=== PATIENT | female | born 1985 | race Hispanic/Latino ===

== ENCOUNTER 2022-11-03 19:45 | Emergency (ER) | payer SELFPAY ==
[2022-11-03 19:52] VITALS: BP 112/63; PULSE 89; RESP 18; TEMP 37.1; O2SAT 98; BMI 22.8
[2022-11-03 20:13] LABS: Bacteria Urine Moderate (10-30); Culture Indicated Urine Specimen Cultured; RBC Urine None Seen (0-5/HPF); Squamous Epithelial Cell Urine 1-5 /HPF (0-5/HPF); WBC Urine 1-5/HPF (0-5/HPF)
--- NOTE | 2022-11-03 20:22 | ED.GENADULT ---
HPI - General Adult General Chief complaint: Urogenital-Female Stated complaint: UTI X t-7, FEVER Abd and Kidney pain Time Seen by Provider: 11/03/22 20:05 Source: patient Mode of arrival: Ambulatory History of Present Illness HPI narrative: Patient is a 37-year-old female who is here for evaluation approximately 1 week of urinary urgency and frequency. She also thinks she has a yeast infection. She is got some abdominal discomfort. Started having vomiting over the past 24 hours. No fevers. She has had a urinary tract infection in the past and that was several months ago. She does not know what antibiotic she was taken at the time. Related Data Previous Rx's Medication Instructions Recorded cephalexin 500 mg capsule 500 mg PO BID 5 days #10 caps 11/03/22 fluconazole 100 mg tablet 100 mg PO DAILY #2 tabs 11/03/22 (Diflucan) Allergies Allergy/AdvReac Type Severity Reaction Status Date / Time morphine Allergy Hives Verified 11/03/22 19:52 NSAIDS (Non-Steroidal Allergy Swelling Verified 11/03/22 19:52 Anti-Inflamma of Lip/Tongue/Throat Review of Systems Constitutional Constitutional: Reports system reviewed and no additional complaints, except as documented Gastrointestinal Gastrointestinal: Reports system reviewed and no additional complaints, except as documented Genitourinary Genitourinary: Reports system reviewed and no additional complaints, except as documented Musculoskeletal Musculoskeletal: Reports system reviewed and no additional complaints, except as documented Integumentary/Breasts Skin/Breast: Reports system reviewed and no additional complaints, except as documented Patient History Social History Smoking Status: Current every day smoker Smoking Status: Current every day smoker tobacco type: cigarettes and vaping Substance Use Type: does not use Exam Initial Vital Signs Initial Vital Signs: Vital Signs Temperature 98.8 F 11/03/22 19:52 Pulse Rate 89 11/03/22 19:52 Respiratory Rate 18 11/03/22 19:52 Blood Pressure 112/63 11/03/22 19:52 Pulse Oximetry 98 11/03/22 19:52 Oxygen Delivery Method Room Air 11/03/22 19:52 Const General: cooperative, comfortable and No ill appearing HENMT Head: normal to inspection and normocephalic GI Inspection: normal to inspection and non-distended Palpation: soft and No firm Back/Spine/Pelvis Back: No CVA tenderness Skin General: no rashes or lesions noted Neuro General: patient alert and patient awake Course Orders Ordered: ED Orders 11/03/22 19:50 Urine Culture Stat Urine Microscopic Stat 11/03/22 20:22 Chlamydia Gonorrhea PCR -URINE Stat Discontinued Medications Hydrocodone Bitart/Acetaminophen (Hydrocodone/Acet 5/325 Tablet) 1 tab PO NOW ONE Stop: 11/03/22 20:58 Last Admin: 11/03/22 21:03 Dose: 1 tab Documented By: RANGEL Cephalexin HCl (Cephalexin 250 Mg Capsule) 500 mg PO NOW ONE Stop: 11/03/22 20:24 Last Admin: 11/03/22 20:32 Dose: 500 mg Documented By: RANGEL Fluconazole (Fluconazole 100 Mg Tablet) 100 mg PO NOW ONE Stop: 11/03/22 22:08 Last Admin: 11/03/22 22:22 Dose: 100 mg Documented By: LORAINE Ondansetron HCl (Ondansetron 4 Mg Odt) 4 mg SL NOW PRN PRN Reason: Nausea And Vomiting Last Admin: 11/03/22 20:32 Dose: 4 mg Documented By: RANGEL Ondansetron HCl (Ondansetron 4 Mg/2 Ml Inj) 4 mg IV NOW PRN PRN Reason: Nausea And Vomiting Ondansetron HCl (Ondansetron 4 Mg Odt Prepack) 1 bottle MISC SEEINSTR ONE Stop: 11/03/22 22:08 Last Admin: 11/03/22 22:22 Dose: 1 bottle Documented By: LORAINE Vital Signs Vital signs: Vital Signs - 8 hr 11/03/22 19:52 11/03/22 22:17 Temperature 98.8 F 98.6 F Pulse Rate 89 89 Respiratory Rate 18 16 Blood Pressure 112/63 115/67 Pulse Oximetry 98 99 Oxygen Delivery Method Room Air Room Air Medical Decision Making Lab Data Lab results reviewed: Yes I reviewed the patient's lab results. Labs: Lab Results 11/03/22 11/03/22 Range/Units 19:50 20:22 Urine RBC None seen (0-5/HPF) Urine WBC 1-5/hpf (0-5/HPF) Ur Squamous Epith Cells 1-5 /hpf (0-5/HPF) Urine Bacteria Moderate (10-30) H (None) Ur Culture Indicated? Specimen cultured Ur Chlamydia DNA (PCR) Not detected N gonorrhoeae DNA (PCR) Not detected Point of Care Testing Test Results Negative Urine Dip Bedside Urine Glucose Negative Bedside Urine Bilirubin - Negative Bedside Urine Ketone - Negative Urine Specific [place] 1.01 Bedside Urine Occult Blood - Negative Bedside Urine pH 6 Bedside Urine Protein - Negative Bedside Urine Urobilinogen - Negative Bedside Urine Nitrite + Positive Bedside Urine Leukocytes +/- 15 Esterase Point of care testing: Point of Care Testing Test Results Negative Urine Dip Bedside Urine Glucose Negative Bedside Urine Bilirubin - Negative Bedside Urine Ketone - Negative Urine Specific [place] 1.01 Bedside Urine Occult Blood - Negative Bedside Urine pH 6 Bedside Urine Protein - Negative Bedside Urine Urobilinogen - Negative Bedside Urine Nitrite + Positive Bedside Urine Leukocytes +/- 15 Esterase MDM Narrative Medical decision making narrative: Urinalysis today is consistent with a urinary tract infection. She was able to tolerate an oral dose of antibiotics here in the ER. She is nontoxic appearing. Her GC and chlamydia are negative as well. She states that she has a yeast infection. She is had these in the past. Low suspicion for pyelonephritis. Plan will be is to discharge home with a prescription for antibiotics. We will also presumptively treat her for urinary tract infection. She was given Zofran for nausea as well. She understands that there is a urine culture pending at the time of her discharge she will be contacted if we need to change any antibiotics. Prescriptions were sent to the pharmacy of her choice. There was no indication for admission. Will hold on any radiologic studies for now. She expressed understanding and agreement this plan. Discharge Plan Departure Patient Disposition: Home Clinical Impression: Urinary tract infection, Yeast infection Instructions: DI for Urinary Tract Infection (UTI) Activity Restrictions/Additional Instructions: I do recommend that you take all of the medications as directed. Urine culture was pending at the time of your discharge we will contact you if we need to change antibiotics based on this. Return to the emergency department for new or worsening symptoms. Prescriptions: New cephalexin 500 mg capsule 500 mg PO BID 5 Days Qty: 10 0RF fluconazole [Diflucan] 100 mg tablet 100 mg PO DAILY Qty: 2 0RF Stand Alone Forms: Patient Portal/API
[2022-11-03] MEDS: ONDANSETRON 4 MG ODT SL (20:32)
[2022-11-03] MEDS: cephALEXin 250 MG CAPSULE 500 MG PO (20:32)
[2022-11-03] MEDS: HYDROCODONE/ACET 5/325 TABLET 1 TAB PO (21:03)
[2022-11-03 21:58] LABS: Urine Chlamydia NOT DETECTED; Urine N gonorrhoeae NOT DETECTED
[2022-11-03 22:17] VITALS: BP 115/67; PULSE 89; RESP 16; TEMP 37; O2SAT 99
[2022-11-03] MEDS: ONDANSETRON 4 MG ODT PREPACK 1 BOTTLE MISC (22:22)
[2022-11-03] MEDS: FLUCONAZOLE 100 MG TABLET PO (22:22)
== END 2022-11-03 22:27 | disposition home or self-care (01) ==
PROVIDERS: Emergency Provider Emergency Medicine
DX: N39.0 Urinary tract infection, site not specified (principal)
CPT/HCPCS: 81003; 81015; 81025; 87086; 87491; 87591; 99283; 99284

== ENCOUNTER 2023-04-04 17:48 | Emergency (ER) | payer SELFPAY ==
[2023-04-04 17:55] VITALS: BP 106/57; PULSE 133; RESP 18; TEMP 36.3; O2SAT 97; BMI 21.0
--- NOTE | 2023-04-04 17:59 | DI.RAD.S_ITS ---
PROCEDURE: XR CHEST 1V INDICATIONS: suspected sepsis TECHNIQUE: One view of the chest was acquired. COMPARISON: None. FINDINGS: Surgical changes and devices: None. Lungs and pleura: Lungs are clear. No pleural effusions or pneumothorax. Mediastinum: Mediastinal contours appear normal. Heart size is normal. Bones and chest wall: No suspicious bony lesions. Overlying soft tissues appear unremarkable. IMPRESSION: No acute cardiopulmonary abnormality is seen. Dictated by: Eugenia Thomas M.D. on 04/04/2023 at 19:19 Approved by: Eugenia Thomas M.D. on 04/04/2023 at 19:19
[2023-04-04] MEDS: ONDANSETRON 4 MG/2 ML INJ IV ×2 (18:17→20:29)
[2023-04-04] MEDS: SODIUM CHLORIDE 0.9% 1,000 ML 1000 ML IV ×2 (18:18→20:52)
--- NOTE | 2023-04-04 18:27 | DI.CT.S_ITS ---
PROCEDURE: CT KIDNEY URETER BLADDER (KUB) INDICATIONS: flank pain TECHNIQUE: Axial sections were acquired from the lung bases to the pubic symphysis. Coronal and sagittal reformats were performed. For radiation dose reduction, the following was used: automated exposure control, adjustment of mA and/or kV according to patient size. COMPARISON: None. FINDINGS: Image quality: Diagnostic. Lower Chest: No significant findings. URINARY: Right Kidney: No stones or hydronephrosis. Right Ureter: No hydroureter. Left Kidney: There is asymmetric volume loss in the left lower pole with an exophytic cyst present. No retained stone or hydronephrosis. Left Ureter: No hydroureter. Bladder: Normal wall thickness. No stones. ABDOMEN: Liver: No contour-deforming solid mass. Gallbladder: Decompressed. Biliary ducts: No biliary dilation. Pancreas: Not well seen due to lack of IV contrast. Spleen: Size is within normal limits. Adrenal Glands: No adrenal nodules. Stomach and Bowel: The stomach is filled with ingested material. Small bowel loops and colon are normal. The appendix is surgically absent. Peritoneum: No abnormal intraperitoneal fluid. No free air. Ventral Wall: No hernia. Abdominal Nodes: No enlarged retroperitoneal or mesenteric lymph nodes. Vessels: Aorta and inferior vena cava are normal in size. PELVIS: Pelvic Organs: Anteverted uterus. Tubal ligation clips are present. Ovaries are not well seen by CT. Pelvic Nodes: Unremarkable. Miscellaneous: No inguinal hernias are seen. Bones: Unremarkable. IMPRESSION: No obstructing stones or hydronephrosis. No acute findings. Dictated by: Eugenia Thomas M.D. on 04/04/2023 at 20:11 Approved by: Eugenia Thomas M.D. on 04/04/2023 at 20:15
[2023-04-04] MEDS: HYDROMORPHONE 1 MG INJ IV (18:31)
[2023-04-04 18:44] LABS: Add Manual Diff / Slide Review NO; Basophils Absolute Auto 0 /uL (0-100); Basophils Percent Auto 0.3 % (0-2); Eosinophils Absolute Auto 0 /uL (0-450); Eosinophils Percent Auto 0.2 % (2-4); Hematocrit 34.9 % (36-46); Hemoglobin 11.4 g/dL (12.0-16.0); Lymphocytes Absolute Auto 2000 /uL (1100-4500); Lymphocytes Percent Auto 21.1 % (25-40); Mean Corpuscular HGB Conc 32.7 % (30-36); Mean Corpuscular Hemoglobin 26.4 PG (26-34); Mean Corpuscular Volume 80.8 fL (80-100); Monocytes Absolute Auto 600 /uL (0-900); Monocytes Percent Auto 6.9 % (3-14); Neutrophils Absolute Auto 6700 /uL (1500-7000); Neutrophils Percent Auto 71.5 % (50-75); Platelet Count 595 X10^3/uL (150-400); Red Blood Cell Count 4.32 X10^6/uL (4.0-5.2); Red Cell Distribution Width 14.9 % (11.6-14.8); White Blood Cell Count 9.4 X10^3/uL (4.5-11.0)
[2023-04-04 18:57] LABS: INR 0.9 (0.9-1.3); Prothrombin Time 10.2 SECONDS (9.4-12.5)
[2023-04-04 19:00] LABS: PTT Partial Thromboplastin Tim 24 SECONDS (25.1-36.5)
[2023-04-04 19:08] LABS: Lactate (Lactic Acid) 1.7 mmol/L (0.7-2.1)
[2023-04-04 19:09] LABS: Alanine Aminotransferase 21 IU/L (<35); Albumin 4.5 g/dL (3.5-5.0); Albumin Globulin Ratio 1.3 (1.0-2.8); Alkaline Phosphatase 52 U/L (38-126); Aspartate Aminotransferase 36 IU/L (14-36); BUN Creatinine Ratio 25.5 (6-22); Bilirubin Total 0.7 mg/dL (0.2-1.3); Blood Urea Nitrogen 12 mg/dL (7-17); Calcium 9.6 mg/dL (8.4-10.2); Carbon Dioxide 23 mmol/L (22-32); Chloride 104 mmol/L (98-107); Estimated Glomerular Filt Rate > 60 mL/min (>60); Globulin 3.6 g/dL (1.7-4.1); Glucose 90 mg/dL (70-100); HEMOLYSIS < 15 (0-50); Lipase 103 U/L (23-300); Potassium 3.6 mmol/L (3.4-5.1); Sodium 138 mmol/L (137-145); Total Protein 8.1 g/dL (6.3-8.2)
[2023-04-04 19:25] LABS: Procalcitonin 0.03 ng/mL (<0.5)
[2023-04-04 19:30] LABS: Urine Volume 10mL (spun)
[2023-04-04 19:50] LABS: Appearance Urine UA CLEAR; Color Urine UA ORANGE
[2023-04-04 19:54] LABS: RBC Urine 0-1/HPF (0-5/HPF)
[2023-04-04 19:55] LABS: Bacteria Urine Few (2-10); Culture Indicated Urine Specimen Cultured; Mucus Urine 3+ (Negative); Squamous Epithelial Cell Urine 10-30 /HPF (0-5/HPF); WBC Urine 10-30/HPF (0-5/HPF)
[2023-04-04] MEDS: OXYCODONE IR 5 MG TABLET PO (20:52)
[2023-04-04] MEDS: cefTRIAXone 2,000 MG in SODIUM CHLORIDE 0.9% 100 ML 200 MG IV (20:53)
--- NOTE | 2023-04-04 20:56 | ED.FEMALEGU ---
HPI - Female Genitourinary General Chief complaint: Urogenital-Female Stated complaint: V/burning while urinating/Hx kidney stones Time Seen by Provider: 04/04/23 18:22 History of Present Illness HPI Narrative: 37-year-old female here complaining of left leg pain. She has had this about 4 days, she has also had dysuria and frequency. For last 24 hours she has had nausea vomiting and believes she had a fever last night. Patient reports a history of kidney infections in the past and history of kidney stones. Other past medical history include uterine fibroids. She is status post tubal ligation. Related Data Previous Rx's Medication Instructions Recorded fluconazole 100 mg tablet 100 mg PO DAILY #2 tabs 11/03/22 (Diflucan) cefdinir 300 mg capsule 300 mg PO BID #20 caps 04/04/23 ondansetron 4 mg disintegrating 4 mg PO Q6H PRN nausea and 04/04/23 tablet vomiting #14 tabs oxycodone 5 mg tablet 5 mg PO Q6H PRN pain #7 tabs 04/04/23 Allergies Allergy/AdvReac Type Severity Reaction Status Date / Time morphine Allergy Hives Verified 11/03/22 19:52 NSAIDS (Non-Steroidal Allergy Swelling Verified 11/03/22 19:52 Anti-Inflamma of Lip/Tongue/Throat Patient History tobacco type: cigarettes and vaping Last Alcoholic Drink: Does not use Substance Use Type: does not use Exam Narrative Exam Narrative: Alert, no acute distress HEENT: Normocephalic, atraumaitic moist mucus membranes Neck: Supple no midline tenderness Lungs: Clear to ascultaion, no respiratory distress Heart: Regular rhythm and rate no murmur Abdomen: Normal bowel sounds, soft and nontender postive L CVAT Extremeties: Full range of motion no deformity Neuro: Alert and oriented, normal speech moves x4 Initial Vital Signs Initial Vital Signs: Vital Signs Temperature 97.3 F L 04/04/23 17:55 Pulse Rate 133 H 04/04/23 17:55 Respiratory Rate 18 04/04/23 17:55 Blood Pressure 106/57 L 04/04/23 17:55 Pulse Oximetry 97 04/04/23 17:55 Oxygen Delivery Method Room Air 04/04/23 17:55 Course Orders Ordered: ED Orders 04/04/23 17:59 XR chest 1V Stat EKG-12 Lead Stat RT Consult Eval and Treat NOW 04/04/23 18:10 Complete Blood Count AUTO DIFF Stat Comprehensive Metabolic Panel Stat Lactate (Lactic Acid) Stat Lipase Stat PTT Partial Thromboplastin [place] Stat Procalcitonin Stat Prothrombin Time INR Stat 04/04/23 18:27 CT kidney ureter bladder (KUB) Stat 04/04/23 18:30 Blood Culture Stat 04/04/23 19:19 Urinalysis and Microscopic Stat Urine Culture Stat Discontinued Medications Hydromorphone HCl (Hydromorphone 1 Mg Inj) 1 mg IV NOW ONE Stop: 04/04/23 18:28 Last Admin: 04/04/23 18:31 Dose: 1 mg Documented By: STEVE Sodium Chloride (Normal Saline 0.9%) 1,000 mls @ 1,000 mls/hr IV BOLUS ONE Stop: 04/04/23 18:58 Last Infusion: 04/04/23 19:31 Dose: Infused Documented By: Admin: 04/04/23 18:18 Dose: 1,000 mls/hr Documented By: STEVE Ceftriaxone Sodium 2,000 mg/ (Sodium Chloride) 100 mls @ 200 mls/hr IV NOW ONE Stop: 04/04/23 20:42 Last Infusion: 04/04/23 21:32 Dose: Infused Documented By: Admin: 04/04/23 20:53 Dose: 200 mls/hr Documented By: STEVE Sodium Chloride (Normal Saline 0.9%) 1,000 mls @ 1,000 mls/hr IV BOLUS ONE Stop: 04/04/23 21:40 Last Infusion: 04/04/23 21:42 Dose: Infused Documented By: Admin: 04/04/23 20:52 Dose: 1,000 mls/hr Documented By: STEVE Ondansetron HCl (Ondansetron 4 Mg/2 Ml Inj) 4 mg IV NOW PRN PRN Reason: Nausea And Vomiting Last Admin: 04/04/23 18:17 Dose: 4 mg Documented By: STEVE Ondansetron HCl (Ondansetron 4 Mg Odt) 4 mg SL NOW PRN PRN Reason: Nausea And Vomiting Ondansetron HCl (Ondansetron 4 Mg/2 Ml Inj) 4 mg IV NOW ONE Stop: 04/04/23 20:25 Last Admin: 04/04/23 20:29 Dose: 4 mg Documented By: STEVE Oxycodone HCl (Oxycodone Ir 5 Mg Tablet) 5 mg PO NOW ONE Stop: 04/04/23 20:42 Last Admin: 04/04/23 20:52 Dose: 5 mg Documented By: STEVE Vital Signs Vital signs: Vital Signs - 8 hr 04/04/23 22:05 Temperature 98.2 F Pulse Rate 95 H Respiratory Rate 16 Blood Pressure 109/69 Pulse Oximetry 100 Oxygen Delivery Method Room Air MDM - Female Genitourinary Lab Data Lab results narrative: CBC with diff is remarkable for elevated platelet count, CMP is unremarkable, urinalysis shows pyuria and bacteriuria she did have some squamous epithelial cells 04/04/23 18:10 04/04/23 18:10 Labs: Lab Results 04/04/23 04/04/23 Range/Units 18:10 19:19 WBC 9.4 (4.5-11.0) X10^3/uL RBC 4.32 (4.0-5.2) X10^6/uL Hgb 11.4 L (12.0-16.0) g/dL Hct 34.9 L (36-46) % MCV 80.8 (80-100) fL MCH 26.4 (26-34) PG MCHC 32.7 (30-36) % RDW 14.9 H (11.6-14.8) % Plt Count 595 H (150-400) X10^3/uL Neut % (Auto) 71.5 (50-75) % Lymph % (Auto) 21.1 L (25-40) % [place] % (Auto) 6.9 (3-14) % Eos % (Auto) 0.2 L (2-4) % Baso % (Auto) 0.3 (0-2) % Neut # (Auto) 6700 (8541-8627) /uL Lymph # (Auto) 2000 (0107-7691) /uL [place] # (Auto) 600 (0-900) /uL Eos # (Auto) 0 (0-450) /uL Baso # (Auto) 0 (0-100) /uL PT 10.2 (9.4-12.5) SECONDS INR 0.9 (0.9-1.3) APTT 24 L (25.1-36.5) SECONDS Sodium 138 (137-145) mmol/L Potassium 3.6 (3.4-5.1) mmol/L Chloride 104 (98-107) mmol/L Carbon Dioxide 23 (22-32) mmol/L BUN 12 (7-17) mg/dL Creatinine 0.47 L (0.52-1.04) mg/dL Estimated GFR > 60 (>60) mL/min BUN/Creatinine Ratio 25.5 H (6-22) Glucose 90 (70-100) mg/dL Lactate 1.7 (0.7-2.1) mmol/L Calcium 9.6 (8.4-10.2) mg/dL Total Bilirubin 0.7 (0.2-1.3) mg/dL AST 36 (14-36) IU/L ALT 21 (<35) IU/L Alkaline Phosphatase 52 (38-126) U/L Total Protein 8.1 (6.3-8.2) g/dL Albumin 4.5 (3.5-5.0) g/dL Globulin 3.6 (1.7-4.1) g/dL Albumin/Globulin Ratio 1.3 (1.0-2.8) Lipase 103 (23-300) U/L Procalcitonin 0.03 (<0.5) ng/mL Urine Color [place] Urine Appearance Clear Urine pH (4.5-8.0) Ur Specific [place] TNP Urine Protein TNP Urine Glucose (UA) TNP Urine Ketones TNP Urine Occult Blood TNP Urine Nitrate TNP Urine Bilirubin TNP Urine Urobilinogen TNP Ur Leukocyte Esterase TNP Urine RBC 0-1/hpf (0-5/HPF) Urine WBC 10-30/hpf H (0-5/HPF) Ur Squamous Epith Cells 10-30 /hpf H D (0-5/HPF) Urine Bacteria Few (2-10) H (None) Urine Mucus 3+ H (Negative) Ur Culture Indicated? Specimen cultured Vol Urine Centrifuged 10ml (spun) Imaging Data Chest x-ray: My Impression: Independent review, no acute disease Radiologist's Impression: Per Radiology report, no acute disease CT scan - abdomen/pelvis: My Impression: On my independent review, no hydronephrosis no ureteral stone no bowel obstruction Radiologist's Impression: Per radiology report, no obstruction, no acute findings MDM Narrative Medical decision making narrative: 37-year-old female who is status post tubal ligation and therefore assumed not to be . She has left flank pain left CVAT and urinary symptoms. Presentation is very suggestive of pyelonephritis. No evidence of bowel obstruction or ureteral stone. I started her on ceftriaxone here and discharged her on cefdinir. She also is given a prescription for a few oxycodone for pain and ondansetron for nausea and vomiting. Discharge Plan Departure Patient Disposition: Home Clinical Impression: Pyelonephritis Activity Restrictions/Additional Instructions: We are treating you today for a kidney infection. Antibiotics given in the emergency department we will cover you for 24 hours, sisal picker the prescribed antibiotic and take it as directed for the full course. Your next dose should be tomorrow afternoon. You can use ibuprofen as needed for pain, Ibuprofen (motrin or advil) should be dosed at 600mg (3 non-prescription tablets) every 6 hours. Taking this on a scheduled basis is more effective. It is a good idea to take this with food. Use this with caution if you have a history of bleeding ulcers or renal disease. I also prescribed a few oxycodone to use as needed for pain and ondansetron to use for nausea. Rest and get adequate fluids. If you are having increasing pain uncontrolled vomiting or other acute symptoms recheck in the emergency department. Follow up soon with your primary care provider. Prescriptions: New cefdinir 300 mg capsule 300 mg PO BID Qty: 20 0RF ondansetron 4 mg tablet,disintegrating 4 mg PO Q6H PRN (Reason: nausea and vomiting) Qty: 14 0RF oxycodone 5 mg tablet 5 mg PO Q6H PRN (Reason: pain) Qty: 7 0RF No Action fluconazole [Diflucan] 100 mg tablet 100 mg PO DAILY Qty: 2 0RF Stand Alone Forms: Patient Portal/API, Work Release Note
[2023-04-04 22:05] VITALS: BP 109/69; PULSE 95; RESP 16; TEMP 36.8; O2SAT 100
== END 2023-04-04 22:46 | disposition home or self-care (01) ==
PROVIDERS: Emergency Medicine; Emergency Provider Emergency Medicine
DX: N12 Tubulo-interstitial nephritis, not specified as acute or chronic (principal); R30.0 Dysuria
CPT/HCPCS: 36415; 71045; 74176; 80053; 81001; 83605; 83690; 84145; 85025; 85610; 85730; 87040; 87086; 96361; 96365; 96375; 96376; 99284; J0696; J1170; J2405

== ENCOUNTER 2023-09-09 20:38 | Emergency (ER) | payer SELFPAY ==
[2023-09-09 20:42] VITALS: BP 126/70; PULSE 119; RESP 20; TEMP 37.2; O2SAT 99; BMI 21.0
[2023-09-09 21:03] LABS: Strep Grp A by PCR Rapid Positive (Negative)
--- NOTE | 2023-09-09 22:38 | ED_ITS ---
HPI - URI/Sore Throat General Chief Complaint: Upper Respiratory Symptoms Stated Complaint: sore throat T-3 Time Seen by Provider: 09/09/23 22:18 Source: patient Mode of arrival: Family Vehicle History of Present Illness HPI Narrative: 37-year-old female with sore throat symptoms since yesterday, also some dysuria and left-sided flank pain, nausea and vomiting nonbloody. She denies cough shortness of breath or chest pain. She denies having fevers. She has swelling symptoms with ibuprofen and NSAIDs, has tried Tylenol with little relief of discomfort. Related Data Previous Rx's Medication Instructions Recorded fluconazole 100 mg tablet 100 mg PO DAILY #2 tabs 11/03/22 (Diflucan) cefdinir 300 mg capsule 300 mg PO BID #20 caps 04/04/23 ondansetron 4 mg disintegrating 4 mg PO Q6H PRN nausea and 04/04/23 tablet vomiting #14 tabs oxycodone 5 mg tablet 5 mg PO Q6H PRN pain #7 tabs 04/04/23 amoxicillin 875 mg tablet 875 mg PO BID dental infection 7 09/09/23 days #14 tabs Allergies Allergy/AdvReac Type Severity Reaction Status Date / Time morphine Allergy Hives Verified 09/09/23 20:47 NSAIDS (Non-Steroidal Allergy Swelling Verified 09/09/23 20:47 Anti-Inflamma of Lip/Tongue/Throat Review of Systems Review of Systems Narrative: Per HPI Patient History Social History Smoking Status: Current every day smoker Smoking Status: Current every day smoker tobacco type: cigarettes and vaping Substance Use Type: does not use Exam Narrative Exam Narrative: GENERAL: Well-developed patient, in mild distress. HEAD: Atraumatic. Normocephalic. EYES: Pupils equal round and reactive. Extraocular motions intact. No scleral icterus. No injection or drainage. ENT: Nose without bleeding, purulent drainage. Oropharynx with some erythema, no exudates, no tonsillar edema or exudate, no palatal edema, no visible tonsils. Airway patent. NECK: Trachea midline. Non tender CARDIOVASCULAR: Regular rate and rhythm without murmurs, gallops, or rubs. RESPIRATORY: Clear to auscultation. Breath sounds equal bilaterally. No wheezes, rales, or rhonchi. GASTROINTESTINAL: Abdomen soft, non-tender, nondistended. EXTREMITIES: No edema or joint tenderness. BACK: Nontender without deformity or crepitance. No flank tenderness. NEURO: AOx3. SKIN: No rash or erythema of visible areas Initial Vital Signs Initial Vital Signs: Vital Signs Temperature 99 F 09/09/23 20:42 Pulse Rate 119 H 09/09/23 20:42 Respiratory Rate 20 09/09/23 20:42 Blood Pressure 126/70 09/09/23 20:42 Pulse Oximetry 99 09/09/23 20:42 Oxygen Delivery Method Room Air 09/09/23 20:42 Course Orders Ordered: ED Orders 09/09/23 23:00 Urinalysis and Microscopic Stat Discontinued Medications Amoxicillin (Amoxicillin 250 Mg Capsule) 1,000 mg PO NOW ONE Stop: 09/09/23 23:31 Last Admin: 09/09/23 23:39 Dose: 1,000 mg Documented By: Ondansetron HCl (Ondansetron 4 Mg Odt) 4 mg SL NOW ONE Stop: 09/09/23 22:43 Last Admin: 09/09/23 22:55 Dose: 4 mg Documented By: ESSIE Ondansetron HCl (Ondansetron 4 Mg Odt Prepack) 1 bottle MISC DIRECTED ONE Stop: 09/09/23 23:31 Last Admin: 09/09/23 23:38 Dose: 1 bottle Documented By: Tramadol HCl (Tramadol 50 Mg Tablet) 50 mg PO NOW ONE Stop: 09/09/23 22:47 Last Admin: 09/09/23 22:55 Dose: 50 mg Documented By: ESSIE Tramadol HCl (Tramadol 50 Mg Prepack) 1 bottle MISC DIRECTED ONE Stop: 09/09/23 23:50 Last Admin: 09/09/23 23:53 Dose: 1 bottle Documented By: Vital Signs Vital signs: Vital Signs - 8 hr 09/09/23 23:49 Pulse Rate 98 H Respiratory Rate 18 Blood Pressure 140/89 Pulse Oximetry 100 Oxygen Delivery Method Room Air MDM - URI/Sore Throat Lab Data Attestation: I reviewed the patient's lab results. Labs: Lab Results 09/09/23 09/09/23 Range/Units 20:50 23:00 Urine Color Yellow Urine Appearance Clear Urine pH 6.5 (4.5-8.0) Ur Specific [place] 1.020 (1.000-1.035) Urine Protein Negative (Negative) Urine Glucose (UA) Negative (Negative) g/dL Urine Ketones Negative (NEGATIVE) Urine Occult Blood Negative (Negative) Urine Nitrate Negative (Negative) Urine Bilirubin Negative (NEGATIVE) Urine Urobilinogen 0.2 (0.2) E.U./dL Ur Leukocyte Esterase Negative (NEGATIVE) Urine RBC None seen (0-5/HPF) Urine WBC None seen (0-5/HPF) Ur Squamous Epith Cells >30 /hpf H (0-5/HPF) Urine Bacteria None seen (None) Ur Culture Indicated? Cult not indicated Vol Urine Centrifuged 10ml (spun) Group A Strep (PCR) Positive H (Negative) MDM Narrative Medical decision making narrative: 37-year-old female with sore throat symptoms, no cough, rapid strep screen positive. Consider amoxicillin, however patient also has had dysuria. Urinalysis ordered Urinalysis contaminated but not obviously infected. P.o. amoxicillin for strep pharyngitis, prescription sent for further course of antibiotic. ODT ondansetron to use if needed, tramadol home pack to use if needed for pain. History of NSAID allergies noted. Recheck with regular PCP if not improved by Tuesday, return precautions discussed. Home with family Discharge Plan Departure Patient Disposition: Home Clinical Impression: Strep pharyngitis, Dysuria Instructions: DI for Strep Throat Activity Restrictions/Additional Instructions: Sore throat symptoms, some nausea and vomiting, anti nausea medication ondansetr on oral dissolvable tablet given, history of allergy to anti-inflammatory medications, no Toradol given therefore, but oral dose of tramadol for pain control. Home pack of tramadol to use if needed. Tylenol as needed for pain control. Home pack of ondansetron ODT to use as needed for nausea control. Also some painful urination symptoms, urinalysis was somewhat contaminated but not obviously infected. First dose antibiotic amoxicillin for strep throat treatment, prescription for further antibiotics electronically sent to your pharmacy. Recheck symptoms on Tuesday if they are persisting. Recheck this/nearest emergency department for any change worsening symptoms or any concerns prior Prescriptions: New amoxicillin 875 mg tablet 875 mg PO BID 7 Days Qty: 14 0RF No Action fluconazole [Diflucan] 100 mg tablet 100 mg PO DAILY Qty: 2 0RF cefdinir 300 mg capsule 300 mg PO BID Qty: 20 0RF ondansetron 4 mg tablet,disintegrating 4 mg PO Q6H PRN (Reason: nausea and vomiting) Qty: 14 0RF oxycodone 5 mg tablet 5 mg PO Q6H PRN (Reason: pain) Qty: 7 0RF Stand Alone Forms: Patient Portal/API
[2023-09-09] MEDS: TRAMADOL 50 MG TABLET PO (22:55)
[2023-09-09] MEDS: ONDANSETRON 4 MG ODT SL (22:55)
[2023-09-09 23:13] LABS: Appearance Urine UA CLEAR; Bilirubin Urine UA NEGATIVE (NEGATIVE); Color Urine UA YELLOW; Glucose Urine UA NEGATIVE (Negative); Ketones Urine UA NEGATIVE (NEGATIVE); Leukocyte Esterase Urine UA NEGATIVE (NEGATIVE); Nitrite Urine UA NEGATIVE (Negative); Occult Blood Urine UA NEGATIVE (Negative); Protein Urine UA NEGATIVE (Negative); Urobilinogen Urine UA 0.2 E.U./dL (0.2)
[2023-09-09 23:14] LABS: pH Urine UA 6.5 (4.5-8.0)
[2023-09-09 23:23] LABS: Bacteria Urine None Seen; RBC Urine None Seen (0-5/HPF); Urine Volume 10mL (spun); WBC Urine None Seen (0-5/HPF)
[2023-09-09 23:24] LABS: Culture Indicated Urine Cult Not Indicated; Squamous Epithelial Cell Urine >30 /HPF (0-5/HPF)
[2023-09-09] MEDS: ONDANSETRON 4 MG ODT PREPACK 1 BOTTLE MISC (23:38)
[2023-09-09] MEDS: AMOXICILLIN 250 MG CAPSULE 1000 MG PO (23:39)
[2023-09-09 23:49] VITALS: BP 140/89; PULSE 98; RESP 18; O2SAT 100
[2023-09-09] MEDS: TRAMADOL 50 MG PREPACK 1 BOTTLE MISC (23:53)
== END 2023-09-09 23:57 | disposition home or self-care (01) ==
PROVIDERS: Emergency Provider Emergency Medicine
DX: J02.0 Streptococcal pharyngitis (principal); R30.0 Dysuria; F17.210 Nicotine dependence, cigarettes, uncomplicated; F17.290 Nicotine dependence, other tobacco product, uncomplicated
CPT/HCPCS: 81001; 87651; 99283

== ENCOUNTER 2024-04-29 16:24 | Emergency (ER) | payer SELFPAY ==
[2024-04-29] VITALS (10 sets, daily range): BP systolic 94–112; BP diastolic 47–57; PULSE 78–97; RESP 16–18; TEMP 37.2; O2SAT 95–100; BMI 21.0
[2024-04-29] MEDS: ONDANSETRON 4 MG/2 ML INJ IV (18:07)
[2024-04-29 21:19] LABS: Appearance Urine UA CLEAR; Bilirubin Urine UA NEGATIVE (NEGATIVE); Glucose Urine UA NEGATIVE (Negative); Ketones Urine UA NEGATIVE (NEGATIVE); Leukocyte Esterase Urine UA NEGATIVE (NEGATIVE); Occult Blood Urine UA NEGATIVE (Negative); Protein Urine UA NEGATIVE (Negative)
[2024-04-29 21:21] LABS: Color Urine UA Orange; pH Urine UA 6.5 (4.5-8.0)
[2024-04-29 21:22] LABS: RBC Urine None Seen (0-5/HPF); Urine Volume 10mL (spun); WBC Urine None Seen (0-5/HPF)
[2024-04-29 21:23] LABS: Bacteria Urine Occasional (0-1); Culture Indicated Urine Cult Not Indicated; Pregnancy Test Urine Negative (Negative); Squamous Epithelial Cell Urine 1-5 /HPF (0-5/HPF)
--- NOTE | 2024-04-29 22:17 | ED_ITS ---
HPI - General Adult General Chief complaint: Urogenital-Female Stated complaint: unrinary issue, vomiting Time Seen by Provider: 04/29/24 20:38 Source: patient Mode of arrival: Ambulatory History of Present Illness HPI narrative: 38-year-old female reports history of kidney stones, complains of painful frequent urination for the last couple of days, left-sided flank discomfort. Repeated episodes of nausea and vomiting. No black or red emesis. No black or red stools. No hard stools. No injury trauma new activities. No shortness of breath, cough. Related Data Previous Rx's Medication Instructions Recorded fluconazole 100 mg tablet 100 mg PO DAILY #2 tabs 11/03/22 (Diflucan) cefdinir 300 mg capsule 300 mg PO BID #20 caps 04/04/23 ondansetron 4 mg disintegrating 4 mg PO Q6H PRN nausea and 04/04/23 tablet vomiting #14 tabs oxycodone 5 mg tablet 5 mg PO Q6H PRN pain #7 tabs 04/04/23 Allergies Allergy/AdvReac Type Severity Reaction Status Date / Time morphine Allergy Hives Verified 09/09/23 20:47 NSAIDS (Non-Steroidal Allergy Swelling Verified 09/09/23 20:47 Anti-Inflamma of Lip/Tongue/Throat Patient History Social History Smoking Status: Current every day smoker Smoking Status: Current every day smoker tobacco type: cigarettes and vaping Exam Narrative Exam Narrative: GENERAL: Well-developed patient, in mild distress. HEAD: Atraumatic. Normocephalic. EYES: Pupils equal round and reactive. Extraocular motions intact. No scleral icterus. No injection or drainage. ENT: Nose without bleeding, purulent drainage. Throat without erythema, tonsillar hypertrophy or exudate. Airway patent. NECK: Trachea midline. Non tender CARDIOVASCULAR: Regular rate and rhythm without murmurs, gallops, or rubs. RESPIRATORY: Clear to auscultation. Breath sounds equal bilaterally. No wheezes, rales, or rhonchi. GASTROINTESTINAL: Abdomen soft, non-tender, nondistended. EXTREMITIES: No edema or joint tenderness. BACK: Nontender without deformity or crepitance. No flank tenderness. NEURO: AOx3. Motor functions grossly nonfocal SKIN: No rash or erythema of visible areas Initial Vital Signs Initial Vital Signs: Vital Signs Temperature 98.9 F 04/29/24 16:34 Pulse Rate 93 H 04/29/24 16:34 Respiratory Rate 16 04/29/24 16:34 Blood Pressure 99/47 L 04/29/24 16:34 Pulse Oximetry 100 04/29/24 16:34 Oxygen Delivery Method Room Air 04/29/24 16:34 Course Orders Ordered: Discontinued Medications Ondansetron HCl (Ondansetron 4 Mg/2 Ml Inj) 4 mg IV NOW PRN PRN Reason: Nausea And Vomiting Last Admin: 04/29/24 18:07 Dose: 4 mg Documented By: RB Ondansetron HCl (Ondansetron 4 Mg Odt) 4 mg SL NOW PRN PRN Reason: Nausea And Vomiting Ondansetron HCl (Ondansetron 4 Mg Odt Prepack) 1 bottle MISC DIRECTED ONE Stop: 04/30/24 00:08 Last Admin: 04/30/24 00:11 Dose: 1 bottle Documented By: LS Vital Signs Vital signs: Vital Signs - 8 hr 04/29/24 16:34 04/29/24 20:46 04/29/24 20:48 Temperature 98.9 F Pulse Rate 93 H 93 H 94 H Respiratory Rate 16 Blood Pressure 99/47 L Pulse Oximetry 100 97 96 Oxygen Delivery Method Room Air 04/29/24 20:48 04/29/24 21:00 04/29/24 21:00 Temperature Pulse Rate 87 Respiratory Rate Blood Pressure 112/54 L 97/56 L Pulse Oximetry 96 Oxygen Delivery Method 04/29/24 21:30 04/29/24 21:30 04/29/24 22:00 Temperature Pulse Rate 83 87 Respiratory Rate Blood Pressure 99/54 L Pulse Oximetry 95 95 Oxygen Delivery Method 04/29/24 22:00 04/29/24 22:30 04/29/24 22:30 Temperature Pulse Rate 82 Respiratory Rate Blood Pressure 103/57 L 94/55 L Pulse Oximetry 96 Oxygen Delivery Method 04/29/24 22:51 04/29/24 22:51 04/29/24 23:00 Temperature Pulse Rate 97 H Respiratory Rate Blood Pressure 97/52 L 99/52 L Pulse Oximetry 95 Oxygen Delivery Method 04/29/24 23:00 04/29/24 23:30 04/29/24 23:30 Temperature Pulse Rate 83 78 Respiratory Rate 18 Blood Pressure 103/55 L Pulse Oximetry 95 96 Oxygen Delivery Method Medical Decision Making Lab Data Lab results reviewed: Yes I reviewed the patient's lab results. Lab results narrative: Urine dip negative, urine test negative. 04/29/24 16:50 04/29/24 16:50 Labs: Lab Results 04/29/24 04/29/24 Range/Units 16:50 16:56 WBC 6.5 (4.5-11.0) X10^3/uL RBC 3.67 L (4.0-5.2) X10^6/uL Hgb 9.6 L (12.0-16.0) g/dL Hct 30.2 L (36-46) % MCV 82.3 (80-100) fL MCH 26.0 (26-34) PG MCHC 31.6 (30-36) % RDW 17.2 H (11.6-14.8) % Plt Count 537 H (150-400) X10^3/uL Neut % (Auto) 52.5 (50-75) % Lymph % (Auto) 31.9 (25-40) % [place] % (Auto) 12.4 (3-14) % Eos % (Auto) 2.1 (2-4) % Baso % (Auto) 1.1 (0-2) % Neut # (Auto) 3400 (8603-3189) /uL Lymph # (Auto) 2100 (7931-3144) /uL [place] # (Auto) 800 (0-900) /uL Eos # (Auto) 100 (0-450) /uL Baso # (Auto) 100 (0-100) /uL Sodium 137 (137-145) mmol/L Potassium 5.0 (3.4-5.1) mmol/L Chloride 105 (98-107) mmol/L Carbon Dioxide 23 (22-32) mmol/L BUN 15 (7-17) mg/dL Creatinine 0.58 (0.52-1.04) mg/dL Estimated GFR > 60 (>60) mL/min BUN/Creatinine Ratio 25.9 H (6-22) Glucose 95 (70-100) mg/dL Calcium 9.1 (8.4-10.2) mg/dL Total Bilirubin 0.2 (0.2-1.3) mg/dL AST 32 (14-36) IU/L ALT 18 (<35) IU/L Alkaline Phosphatase 84 (38-126) U/L Total Protein 7.6 (6.3-8.2) g/dL Albumin 4.3 (3.5-5.0) g/dL Globulin 3.3 (1.7-4.1) g/dL Albumin/Globulin Ratio 1.3 (1.0-2.8) Lipase 181 (23-300) U/L Urine Color [place] Urine Appearance Clear Urine pH 6.5 (4.5-8.0) Ur Specific [place] 1.010 (1.000-1.035) Urine Protein Negative (Negative) Urine Glucose (UA) Negative (Negative) g/dL Urine Ketones Negative (NEGATIVE) Urine Occult Blood Negative (Negative) Urine Nitrate TNP Urine Bilirubin Negative (NEGATIVE) Urine Urobilinogen TNP Ur Leukocyte Esterase Negative (NEGATIVE) Urine RBC None seen (0-5/HPF) Urine WBC None seen (0-5/HPF) Ur Squamous Epith Cells 1-5 /hpf D (0-5/HPF) Urine Bacteria Occasional (0-1) (None) Ur Culture Indicated? Cult not indicated Vol Urine Centrifuged 10ml (spun) Urine Test Negative (Negative) Ur Chlamydia DNA (PCR) Not detected N gonorrhoeae DNA (PCR) Not detected MDM Narrative Medical decision making narrative: 38-year-old female with initial complaint of dysuria and frequency of urination and suprapubic discomfort, after results of urinalysis and hCG discussed, stated that she had 2 days duration of left flank pain, history of kidney stones, no injury or trauma, afebrile on triage, soft blood pressure noted, no tachycardia. We will send serum studies. CT abdomen and pelvis ordered. Urine dip negative, urine test negative, Urine GC chlamydia negative Patient now decided that she would not want to have advanced imaging. CT canceled. She feels better, was able to ambulate, took oral fluids. We will give home pack ODT ondansetron. Check advised if symptoms persist with the regular PCP. Return precautions discussed. Discharge Plan Departure Patient Disposition: Home Clinical Impression: Flank pain Activity Restrictions/Additional Instructions: Left flank pain unclear cause. Urinalysis and test negative. Urine chlamydia and gonorrhea test also was negative. Advanced abdominopelvic imaging considered, but declined. You felt better, able to take oral fluids, and elected to go home now. Home pack of oral dissolvable ondansetron dispensed to help control nausea if it recurs. Recheck with your regular doctor if you are still having pain in the next couple of days. Return to this/nearest emergency department for any change worsening symptoms or any concerns prior Prescriptions: No Action fluconazole [Diflucan] 100 mg tablet 100 mg PO DAILY Qty: 2 0RF cefdinir 300 mg capsule 300 mg PO BID Qty: 20 0RF ondansetron 4 mg tablet,disintegrating 4 mg PO Q6H PRN (Reason: nausea and vomiting) Qty: 14 0RF oxycodone 5 mg tablet 5 mg PO Q6H PRN (Reason: pain) Qty: 7 0RF Referrals: Miscellaneous,Doctor, MD [Primary Care Provider] - Stand Alone Forms: Patient Portal/API/Survey
[2024-04-29 22:36] LABS: Add Manual Diff / Slide Review NO; Basophils Absolute Auto 100 /uL (0-100); Basophils Percent Auto 1.1 % (0-2); Eosinophils Absolute Auto 100 /uL (0-450); Eosinophils Percent Auto 2.1 % (2-4); Hematocrit 30.2 % (36-46); Hemoglobin 9.6 g/dL (12.0-16.0); Lymphocytes Absolute Auto 2100 /uL (1100-4500); Lymphocytes Percent Auto 31.9 % (25-40); Mean Corpuscular HGB Conc 31.6 % (30-36); Mean Corpuscular Volume 82.3 fL (80-100); Monocytes Absolute Auto 800 /uL (0-900); Monocytes Percent Auto 12.4 % (3-14); Neutrophils Absolute Auto 3400 /uL (1500-7000); Neutrophils Percent Auto 52.5 % (50-75); Platelet Count 537 X10^3/uL (150-400); Red Blood Cell Count 3.67 X10^6/uL (4.0-5.2); Red Cell Distribution Width 17.2 % (11.6-14.8); White Blood Cell Count 6.5 X10^3/uL (4.5-11.0)
[2024-04-29 22:44] LABS: Alanine Aminotransferase 18 IU/L (<35); Albumin 4.3 g/dL (3.5-5.0); Albumin Globulin Ratio 1.3 (1.0-2.8); Alkaline Phosphatase 84 U/L (38-126); Aspartate Aminotransferase 32 IU/L (14-36); BUN Creatinine Ratio 25.9 (6-22); Bilirubin Total 0.2 mg/dL (0.2-1.3); Blood Urea Nitrogen 15 mg/dL (7-17); Calcium 9.1 mg/dL (8.4-10.2); Carbon Dioxide 23 mmol/L (22-32); Chloride 105 mmol/L (98-107); Estimated Glomerular Filt Rate > 60 mL/min (>60); Globulin 3.3 g/dL (1.7-4.1); Glucose 95 mg/dL (70-100); HEMOLYSIS < 15 (0-50); Lipase 181 U/L (23-300); Sodium 137 mmol/L (137-145); Total Protein 7.6 g/dL (6.3-8.2)
[2024-04-29 23:03] LABS: Urine N gonorrhoeae NOT DETECTED
[2024-04-29 23:04] LABS: Urine Chlamydia NOT DETECTED
--- NOTE | 2024-04-30 00:03 | PC.NURSE ---
Per DI patient declined CT. Provider made aware.
[2024-04-30] MEDS: ONDANSETRON 4 MG ODT PREPACK 1 BOTTLE MISC (00:11)
== END 2024-04-30 00:16 | disposition home or self-care (01) ==
PROVIDERS: Emergency Provider Emergency Medicine
DX: R10.9 Unspecified abdominal pain (principal); R11.2 Nausea with vomiting, unspecified; Z87.442 Personal history of urinary calculi
CPT/HCPCS: 36415; 80053; 81001; 81025; 83690; 85025; 87491; 87591; 96374; 99284; J2405

== ENCOUNTER 2024-09-15 13:46 | Emergency (ER) | payer OTHER, SELFPAY ==
[2024-09-15] VITALS (11 sets, daily range): BP systolic 103–133; BP diastolic 63–77; PULSE 70–89; RESP 20; TEMP 36.7; O2SAT 95–100; BMI 21.9
[2024-09-15] MEDS: ONDANSETRON 4 MG/2 ML INJ IV ×2 (14:12→15:58)
[2024-09-15 14:18] LABS: Add Manual Diff / Slide Review NO; Hematocrit 28.4 % (36-46); Hemoglobin 9.3 g/dL (12.0-16.0); Lymphocytes Absolute Auto 1800 /uL (1100-4500); Mean Corpuscular HGB Conc 32.7 % (30-36); Mean Corpuscular Hemoglobin 25.2 PG (26-34); Mean Corpuscular Volume 77.1 fL (80-100); Platelet Count 538 X10^3/uL (150-400)
[2024-09-15 14:25] LABS: Alanine Aminotransferase 15 IU/L (<35); Albumin 4.4 g/dL (3.5-5.0); Albumin Globulin Ratio 1.4 (1.0-2.8); Alkaline Phosphatase 54 U/L (38-126); Blood Urea Nitrogen 12 mg/dL (7-17); Calcium 8.9 mg/dL (8.4-10.2); Carbon Dioxide 25 mmol/L (22-32); Chloride 103 mmol/L (98-107); Estimated Glomerular Filt Rate > 60 mL/min (>60); Globulin 3.1 g/dL (1.7-4.1); Glucose 82 mg/dL (70-99); HEMOLYSIS < 15 (0-50); Lipase 99 U/L (23-300); Potassium 4.0 mmol/L (3.4-5.1); Sodium 137 mmol/L (137-145); Total Protein 7.5 g/dL (6.3-8.2)
--- NOTE | 2024-09-15 15:41 | ED_ITS ---
HPI - Back Pain/Injury General Chief Complaint: Back Pain/Injury Stated Complaint: NO FOOD OR DRINK, BACK PAIN, POSS KIDNEY STONES Time Seen by Provider: 09/15/24 13:52 Source: patient History of Present Illness HPI Narrative: 38-year-old female history of tubal ligation 3 C sections history of kidney stone presents with left flank pain radiating to left groin started earlier today with numerous bouts of nonbilious nonbloody nausea and vomiting. Patient denies fever, chills, body aches, hematuria, uti symptoms, vaginal discharge, chest pain, cough, runny nose, sore throat. She had to have lithotripsy see last time to pass the stone and feels the same this time. Other than what is stated 14 point review of system is negative. Related Data Previous Rx's ?Medication ?Instructions ?Recorded fluconazole 100 mg tablet 100 mg PO DAILY #2 tabs 10/13 06/03 (Diflucan) cefdinir 300 mg capsule 300 mg PO BID #20 caps 04/04 ondansetron 4 mg disintegrating 4 mg PO Q6H PRN nausea and 04/04/23 tablet vomiting #14 tabs oxycodone 5 mg tablet 5 mg PO Q6H PRN pain #7 tabs 04/04/23 lactulose 10 gram/15 mL oral 10 g (15 mL) PO DAILY PRN 09/15/24 solution constipation #473 mL ondansetron HCl 4 mg tablet 4 mg PO Q6H PRN nausea and 09/15/24 vomiting #30 tabs Allergies Allergy/AdvReac Type Severity Reaction Status Date / Time morphine Allergy Hives Verified 09/15/24 13:52 NSAIDS (Non-Steroidal Allergy Swelling Verified 09/15/24 13:52 Anti-Inflamma of Lip/Tongue/Throat Review of Systems Review of Systems ROS Unobtainable: All systems reviewed & are unremarkable except as noted in HPI and below Patient History tobacco type: cigarettes and vaping Exam Narrative Exam Narrative: GENERAL: [38] year old patient appears stated age. Well-developed patient, in mild distress. HEAD: Atraumatic. Normocephalic. EYES: Pupils equal round and reactive. Extraocular motions intact. No scleral icterus. No injection or drainage. ENT: Nose without bleeding, purulent drainage. Throat without erythema, tonsillar hypertrophy or exudate. Airway patent. NECK: Trachea midline. Non tender CARDIOVASCULAR: Regular rate and rhythm without murmurs, gallops, or rubs. RESPIRATORY: Clear to auscultation. Breath sounds equal bilaterally. No wheezes, rales, or rhonchi. GASTROINTESTINAL: Abdomen soft, LLQ TTP, nondistended. EXTREMITIES: No edema or joint tenderness. BACK: Nontender without deformity or crepitance. No flank tenderness. NEURO: AOx3. SKIN: No rash or erythema of visible areas Initial Vital Signs Initial Vital Signs: Vital Signs Temperature 98.1 F 09/15/24 13:52 Pulse Rate 85 09/15/24 13:52 Respiratory Rate 20 09/15/24 13:52 Blood Pressure 132/75 09/15/24 13:52 Pulse Oximetry 99 09/15/24 13:52 Oxygen Delivery Method Room Air 09/15/24 13:52 Course Orders Ordered: ED Orders 09/15/24 14:00 Complete Blood Count AUTO DIFF Stat Comprehensive Metabolic Panel Stat Lipase Stat Ondansetron HCl (Ondansetron 4 Mg/2 Ml Inj) 4 mg IV NOW PRN PRN Reason: Nausea And Vomiting Last Admin: 09/15/24 14:12 Dose: 4 mg Documented By: RB Ondansetron HCl (Ondansetron 4 Mg Odt) 4 mg PO NOW PRN PRN Reason: Nausea And Vomiting Vital Signs Vital signs: Vital Signs - 8 hr 09/15/24 13:52 09/15/24 15:05 09/15/24 15:05 Temperature 98.1 F Pulse Rate 85 83 Respiratory Rate 20 Blood Pressure 132/75 122/68 Pulse Oximetry 99 98 Oxygen Delivery Method Room Air MDM - Back Pain/Injury Lab Data 09/15/24 14:00 09/15/24 14:00 Labs: Lab Results 09/15/24 Range/Units 14:00 WBC 6.9 (4.5-11.0) X10^3/uL RBC 3.68 L (4.0-5.2) X10^6/uL Hgb 9.3 L (12.0-16.0) g/dL Hct 28.4 L (36-46) % MCV 77.1 L (80-100) fL MCH 25.2 L (26-34) PG MCHC 32.7 (30-36) % RDW 16.9 H (11.6-14.8) % Plt Count 538 H (150-400) X10^3/uL Neut % (Auto) 64.7 (50-75) % Lymph % (Auto) 26.5 (25-40) % [place] % (Auto) 7.5 (3-14) % Eos % (Auto) 0.5 L (2-4) % Baso % (Auto) 0.8 (0-2) % Neut # (Auto) 4400 (9156-9408) /uL Lymph # (Auto) 1800 (8648-8249) /uL [place] # (Auto) 500 (0-900) /uL Eos # (Auto) 0 (0-450) /uL Baso # (Auto) 100 (0-100) /uL Sodium 137 (137-145) mmol/L Potassium 4.0 (3.4-5.1) mmol/L Chloride 103 (98-107) mmol/L Carbon Dioxide 25 (22-32) mmol/L BUN 12 (7-17) mg/dL Creatinine 0.56 (0.52-1.04) mg/dL Estimated GFR > 60 (>60) mL/min BUN/Creatinine Ratio 21.4 (6-22) Glucose 82 (70-99) mg/dL Calcium 8.9 (8.4-10.2) mg/dL Total Bilirubin 0.4 (0.2-1.3) mg/dL AST 33 (14-36) IU/L ALT 15 (<35) IU/L Alkaline Phosphatase 54 (38-126) U/L Total Protein 7.5 (6.3-8.2) g/dL Albumin 4.4 (3.5-5.0) g/dL Globulin 3.1 (1.7-4.1) g/dL Albumin/Globulin Ratio 1.4 (1.0-2.8) Lipase 99 (23-300) U/L Imaging Data CT scan - abdomen/pelvis: Radiologist's Impression: [address] [address] [address] Scan Report Signed Patient: Maryanne Harrington MR#: [id number] : 1985 Acct:[id number] Age/Sex: 38 / F Date of Service: 09/15/24 Loc: ED Accession Number: [id number] Procedure: CT abdomen pelvis w con Ordering Provider: Dillon Moy D.O., ROCEDURE: CT ABDOMEN PELVIS W CON INDICATIONS: LLQ /L Flank pain TECHNIQUE: After the administration of intravenous contrast, axial sections acquired from the lung bases to the pubic symphysis. Coronal and sagittal reformats were performed. For radiation dose reduction, the following was used: automated exposure control, adjustment of mA and/or kV according to patient size. COMPARISON: [facility], CT, CT KIDNEY URETER BLADDER (KUB), 04/04/2023, 18:37. FINDINGS: Image quality: Diagnostic Lower chest: Unremarkable lung bases. Trace hiatal hernia. Normal heart size Liver: Multiple subcentimeter lesions are too small to characterize, usually cysts or hemangiomas assuming patient has no other history of malignancy Gallbladder and biliary system: Unremarkable, nondilated Pancreas: No ductal dilation Spleen: Nonenlarged Adrenals: No discrete nodules Kidneys: No solid mass or hydronephrosis. Left lower pole renal cyst. No obstructing calcified stone Vessels and lymph nodes: The main portal vein is patent. No abdominal aortic aneurysm. No pathologic lymphadenopathy by size criteria. Bowel and peritoneum: Diffusely prominent loops of small bowel filled with fluid, without obstruction. There is also moderate to large colonic fecal loading, without focal area of inflammation. Right lower quadrant suture lines No drainable abscess. Body wall: Unremarkable Pelvis: Bladder is unremarkable. Uterus is unremarkable on limited CT evaluation. 2 cm right complicated ovarian cyst is suspected. Tubal postsurgical changes. Trace pelvic free fluid likely physiologic. Bones: No aggressive appearing osseous abnormality. IMPRESSION: No hydronephrosis or obstructing calcified stone. Diffusely prominent loops of small bowel filled with fluid, without obstruction, possibly enteritis. There is also increased fecal loading in the colon. 2 cm right ovarian complicated cyst possibly corpus luteum cyst. If there are focal right pelvic symptoms, consider ultrasound follow-up. Other findings above. Dictated by: Isaac Mackay M.D. on 09/15/2024 at 15:12 Approved by: Isaac Mackay M.D. on 09/15/2024 at 15:18 [facility] Narrative Medical decision making narrative: All lab work, vital signs, nurse triage note, medication list, previous ER visits and all imaging reviewed. Patient given Dilaudid, Reglan, Zofran here. Hg 9.3, wbc nml, cmp nml, ua 10-30 rbc, CT abdomen and pelvis showed no hydronephrosis or obstructing calcified stone. Diffusely prominent loops of small bowel filled with fluid without obstruction possibly enteritis. Also increased fecal loading in the colon. 2 cm right ovarian complicated cyst possibly corpus luteal cyst. Differential dx includes kidney stone, kidney infection, pancreatitis, diverticulitis, constipation. D/c home on lactulose and zofran rx. Discharge Plan Departure Patient Disposition: Home Clinical Impression: Constipation Qualifiers: Constipation type: slow transit constipation Qualified Code(s): K59.01 - Slow transit constipation Nausea & vomiting Qualifiers: Vomiting type: unspecified Qualified Code(s): R11.2 - Nausea with vomiting, unspecified Instructions: DI for Constipation Activity Restrictions/Additional Instructions: Return with new or worsening symptoms. Take your medicines as directed. Keep hydrated. Follow up PCP in 1-2 weeks if no improvement in symptoms. Prescriptions: New lactulose 10 gram/15 mL solution 10 g PO DAILY PRN (Reason: constipation) Qty: 473 0RF ondansetron HCl 4 mg tablet 4 mg PO Q6H PRN (Reason: nausea and vomiting) Qty: 30 0RF No Action fluconazole [Diflucan] 100 mg tablet 100 mg PO DAILY Qty: 2 0RF cefdinir 300 mg capsule 300 mg PO BID Qty: 20 0RF ondansetron 4 mg tablet,disintegrating 4 mg PO Q6H PRN (Reason: nausea and vomiting) Qty: 14 0RF oxycodone 5 mg tablet 5 mg PO Q6H PRN (Reason: pain) Qty: 7 0RF Referrals: Miscellaneous,Doctor, MD [Primary Care Provider, Medical] Stand Alone Forms: Patient Portal/API
--- NOTE | 2024-09-15 15:45 | DI.CT.S_ITS ---
P,ROCEDURE: CT ABDOMEN PELVIS W CON INDICATIONS: LLQ /L Flank pain TECHNIQUE: After the administration of intravenous contrast, axial sections acquired from the lung bases to the pubic symphysis. Coronal and sagittal reformats were performed. For radiation dose reduction, the following was used: automated exposure control, adjustment of mA and/or kV according to patient size. COMPARISON: [facility], CT, CT KIDNEY URETER BLADDER (KUB), 04/04/2023, 18:37. FINDINGS: Image quality: Diagnostic Lower chest: Unremarkable lung bases. Trace hiatal hernia. Normal heart size Liver: Multiple subcentimeter lesions are too small to characterize, usually cysts or hemangiomas assuming patient has no other history of malignancy Gallbladder and biliary system: Unremarkable, nondilated Pancreas: No ductal dilation Spleen: Nonenlarged Adrenals: No discrete nodules Kidneys: No solid mass or hydronephrosis. Left lower pole renal cyst. No obstructing calcified stone Vessels and lymph nodes: The main portal vein is patent. No abdominal aortic aneurysm. No pathologic lymphadenopathy by size criteria. Bowel and peritoneum: Diffusely prominent loops of small bowel filled with fluid, without obstruction. There is also moderate to large colonic fecal loading, without focal area of inflammation. Right lower quadrant suture lines No drainable abscess. Body wall: Unremarkable Pelvis: Bladder is unremarkable. Uterus is unremarkable on limited CT evaluation. 2 cm right complicated ovarian cyst is suspected. Tubal postsurgical changes. Trace pelvic free fluid likely physiologic. Bones: No aggressive appearing osseous abnormality. IMPRESSION: No hydronephrosis or obstructing calcified stone. Diffusely prominent loops of small bowel filled with fluid, without obstruction, possibly enteritis. There is also increased fecal loading in the colon. 2 cm right ovarian complicated cyst possibly corpus luteum cyst. If there are focal right pelvic symptoms, consider ultrasound follow-up. Other findings above. Dictated by: Isaac Mackay M.D. on 09/15/2024 at 15:12 Approved by: Isaac Mackay M.D. on 09/15/2024 at 15:18
[2024-09-15] MEDS: HYDROMORPHONE 1 MG INJ IV ×2 (15:58→17:07)
[2024-09-15] MEDS: SODIUM CHLORIDE 0.9% 1,000 ML 1000 ML IV (15:59)
--- NOTE | 2024-09-15 16:54 | DI.US.S_ITS ---
PROCEDURE: US PELVIC COMPLETE INDICATIONS: RIGHT OVARIAN CYST. LEFT PELVIC PAIN. TECHNIQUE: Real-time scanning was performed of the pelvic organs, with image documentation. Additional endovaginal scanning was necessary due to incomplete visualization of the adnexal and endometrial structures by transabdominal scanning. COMPARISON: [facility], CT, CT ABDOMEN PELVIS W CON, 09/15/2024, 15:48. FINDINGS: Uterus: 7 x 6 x 6 cm. Endometrium measures 10 mm, within limits for age. Heterogeneous increased vascularity of the endometrium. scar is seen. There is trace fluid adjacent to the scar and within the cervix. Ovaries: Nonenlarged left ovary measuring 3 cc. The right ovary is mildly enlarged, with a dominant follicle measuring 2.8 cm. Color and spectral flows are seen bilaterally. Other: No pathologic free fluid IMPRESSION: Color and spectral flow seen bilaterally. No current evidence of torsion. Right ovary is mildly enlarged, with a dominant follicle measuring 2.8 cm. Hyperemic heterogeneous endometrium, nonspecific in this age group. There is trace fluid adjacent to the scar and cervix. This could represent physiologic menstrual changes versus endometritis. Dictated by: Isaac Mackay M.D. on 09/15/2024 at 17:31 Approved by: Isaac Mackay M.D. on 09/15/2024 at 17:36
[2024-09-15] MEDS: METOCLOPRAMIDE 10 MG/2 ML INJ IV (17:07)
[2024-09-15 17:37] LABS: Culture Indicated Urine Cult Not Indicated
== END 2024-09-15 18:56 | disposition home or self-care (01) ==
PROVIDERS: Emergency Provider Family Medicine
DX: K59.01 Slow transit constipation (principal); R11.2 Nausea with vomiting, unspecified
CPT/HCPCS: 36415; 74177; 76856; 80053; 81003; 81015; 83690; 85025; 87077; 87086; 87147; 96361; 96374; 96375; 96376; 99284; J1171; J2405; J2765; Q9967

== ENCOUNTER 2024-09-29 10:28 | Emergency (ER) | payer SELFPAY ==
[2024-09-29 10:36] VITALS: BP 129/80; PULSE 77; RESP 18; TEMP 36.7; O2SAT 100; BMI 21.9
--- NOTE | 2024-10-17 18:02 | ED_ITS ---
HPI - Dental/Oral General Chief complaint: Dental/Oral Stated complaint: LT face swollen and white blotches yesterday am Time Seen by Provider: 09/29/24 10:51 Source: patient Mode of arrival: Ambulatory History of Present Illness HPI Narrative: 38 yo f who is already on abx cefidinir who started with more swelling over left side of face and seeing some white blotches in her mouth now. she denies any fever or chills and does have f/up with dentist coming up. no other symptoms. Related Data Previous Rx's ?Medication ?Instructions ?Recorded fluconazole 100 mg tablet 100 mg PO DAILY #2 tabs 10/13 06/03 (Diflucan) cefdinir 300 mg capsule 300 mg PO BID #20 caps 04/04 ondansetron 4 mg disintegrating 4 mg PO Q6H PRN nausea and 04/04/23 tablet vomiting #14 tabs oxycodone 5 mg tablet 5 mg PO Q6H PRN pain #7 tabs 04/04/23 lactulose 10 gram/15 mL oral 10 g (15 mL) PO DAILY PRN 09/15/24 solution constipation #473 mL ondansetron HCl 4 mg tablet 4 mg PO Q6H PRN nausea and 09/15/24 vomiting #30 tabs hydrocodone 5 mg-acetaminophen 325 1 tab PO Q4-6H PRN pain #14 tabs 09/29/24 mg tablet nystatin 100,000 unit/mL oral 4 ml PO QID #112 mL 09/11 12/06 suspension Allergies Allergy/AdvReac Type Severity Reaction Status Date / Time morphine Allergy Hives Verified 09/29/24 10:36 NSAIDS (Non-Steroidal Allergy Swelling Verified 09/29/24 10:36 Anti-Inflamma of Lip/Tongue/Throat Review of Systems Review of Systems ROS Unobtainable: All systems reviewed & are unremarkable except as noted in HPI and below Patient History tobacco type: cigarettes and vaping Exam Narrative Exam Narrative: gen: no acute distress eyes: pupils reactive mouth: left mouth area mild swelling/tenderness over lower molar area, whitish mucosal lesions seen over cheek and tongue area cv: regular rate rhythm lungs: clear to auscultation abd: soft, nontender Initial Vital Signs Initial Vital Signs: Vital Signs Temperature 98.1 F 09/29/24 10:36 Pulse Rate 77 09/29/24 10:36 Respiratory Rate 18 09/29/24 10:36 Blood Pressure 129/80 09/29/24 10:36 Pulse Oximetry 100 09/29/24 10:36 Oxygen Delivery Method Room Air 09/29/24 10:36 Course Course Course Narrative: most likely dealing with tooth abscess and new mouth beau due to abx usage Orders Ordered: Discontinued Medications Tranexamic Acid (Tranexamic Acid 1,000 Mg Vial) 1,000 mg TOP NOW ONE Stop: 09/29/24 10:45 Last Admin: 09/29/24 10:48 Dose: Not Given Documented By: RB MDM - Dental/Oral Differential Diagnosis Differential diagnosis: Likely dental caries, toothache and dental abscess MDM Narrative Medical decision making narrative: 38 yo f dealing with tooth abscess already on abx given some pain medications temporarily as well as some nystatin to be used for possible mouth beau that may be starting due to abx usage, f/up with dentist as planned. Discharge Plan Departure Patient Disposition: Home Clinical Impression: Tooth abscess Instructions: DI for Tooth Abscess Activity Restrictions/Additional Instructions: Follow up with dentist as planned Prescriptions: New nystatin 100,000 unit/mL suspension 4 ml PO QID Qty: 112 0RF Rx Instructions: swish and swallow hydrocodone-acetaminophen 5-325 mg tablet 1 tab PO Q4-6H PRN (Reason: pain) Qty: 14 0RF No Action fluconazole [Diflucan] 100 mg tablet 100 mg PO DAILY Qty: 2 0RF cefdinir 300 mg capsule 300 mg PO BID Qty: 20 0RF ondansetron 4 mg tablet,disintegrating 4 mg PO Q6H PRN (Reason: nausea and vomiting) Qty: 14 0RF oxycodone 5 mg tablet 5 mg PO Q6H PRN (Reason: pain) Qty: 7 0RF lactulose 10 gram/15 mL solution 10 g PO DAILY PRN (Reason: constipation) Qty: 473 0RF ondansetron HCl 4 mg tablet 4 mg PO Q6H PRN (Reason: nausea and vomiting) Qty: 30 0RF Referrals: Miscellaneous,Doctor, MD [Primary Care Provider, Medical] Stand Alone Forms: Patient Portal/API
== END 2024-09-29 11:02 | disposition home or self-care (01) ==
PROVIDERS: Emergency Provider Family Medicine
DX: K04.7 Periapical abscess without sinus (principal)
CPT/HCPCS: 99281